=== PATIENT | female | born 1960 ===

== ENCOUNTER 2021-05-08 15:53 | Emergency (ER) | payer OTHER, MEDICARE ==
[~2021-05-08] VITALS: Ht 167.6 cm; Wt 66.7 kg
== END 2021-05-08 17:01 | disposition home or self-care (01) ==
LOC: ER 15:53
DX: U07.1 COVID-19 (principal); Z88.5 Allergy status to narcotic agent
CPT/HCPCS: 71046; 99283-25

== ENCOUNTER 2022-02-23 14:35 | Emergency (ER) | payer OTHER, MEDICARE ==
[~2022-02-23] VITALS: Ht 167.6 cm; Wt 66.7 kg
[2022-02-23] MEDS ORDERED: HYDHCL25 PO (15:32)
[2022-02-23] MEDS ORDERED: PRED20 PO (15:32)
== END 2022-02-23 15:47 | disposition home or self-care (01) ==
LOC: ER 14:35
DX: B02.9 Zoster without complications (principal); L25.9 Unspecified contact dermatitis, unspecified cause; Z88.5 Allergy status to narcotic agent
CPT/HCPCS: A9270

== ENCOUNTER 2022-11-08 23:01 | Emergency (ER) | payer OTHER, MEDICARE ==
[~2022-11-08] VITALS: Ht 160 cm; Wt 70.3 kg
[~2022-11-08 23:01] MED LIST: BENZ100A PO; HYDHCL25 PO; PRED20 PO; Prednisone20 MG PO; SYMBICORT 16010.2 GM INH
[2022-11-08 23:48] LABS: BASOPHILS ABSOLUTE AUTO 0.06 K/mm3 (0.00-0.23); BASOPHILS PERCENT AUTO 1 % (0-2); EOSINOPHILS ABSOLUTE AUTO 1.05 K/mm3 (0.00-0.68); EOSINOPHILS PERCENT AUTO 9 % (0-6); Hematocrit 42.4 % (33.0-51.0); Hemoglobin 14.8 g/dL (11.5-16.0); IMMATURE GRAN ABSOLUTE AUTO 0.04 K/mm3 (0.00-0.10); IMMATURE GRAN PERCENT AUTO 0 % (0-1); LYMPHOCYTES ABSOLUTE AUTO 3.29 K/mm3 (0.84-5.20); LYMPHOCYTES PERCENT AUTO 29 % (21-46); MONOCYTES ABSOLUTE AUTO 0.68 K/mm3 (0.16-1.47); MONOCYTES PERCENT AUTO 6 % (4-13); Mean Corpuscular HGB 31.8 pg (26.0-34.0); Mean Corpuscular HGB Conc 34.9 g/dL (31.5-36.5); Mean Corpuscular Volume 91 fL (80-100); Mean Platelet Volume 10.4 fL (9.1-12.4); NEUTROPHILS ABSOLUTE AUTO 6.41 K/mm3 (1.96-9.15); NEUTROPHILS PERCENT AUTO 56 % (41-73); Platelet Count 306 K/mm3 (150-400); RDW Coefficient Variation 11.9 % (11.7-14.2); RDW Standard Deviation 39.8 fL (35.1-46.3); Red Blood Cell Count 4.66 M/mm3 (3.80-5.20); White Blood Cell Count 11.53 K/mm3 (4.00-11.30)
[2022-11-09 00:07] LABS: Albumin, Blood 4.3 g/dL (3.4-5.0); Albumin/Globulin Ratio 1.1 (0.8-1.8); Bilirubin, Total 0.3 mg/dL (0.1-1.0); Bun/Creatinine Ratio 19.7 (12.0-20.0); Calcium, Blood 9.4 mg/dL (8.5-10.1); Creatinine, Blood 0.76 mg/dL (0.40-1.00); Potassium, Blood 3.7 mmol/L (3.5-5.5); Total Protein, Blood 8.3 g/dL (6.4-8.2)
[2022-11-09 02:58] LABS: Influenza A, PCR NEGATIVE (NEGATIVE); Influenza B, PCR NEGATIVE (NEGATIVE); Resp Syncytial Virus, PCR NEGATIVE (NEGATIVE); SARS-Cov-2 (COVID-19) PCR, MMC NEGATIVE (NEGATIVE)
[2022-11-09] MEDS ORDERED: PRED20 PO (03:38)
== END 2022-11-09 03:56 | disposition home or self-care (01) ==
LOC: ER 23:01
PROVIDERS: Emergency Medicine
DX: J45.901 Unspecified asthma with (acute) exacerbation (principal); F17.200 Nicotine dependence, unspecified, uncomplicated; Z88.5 Allergy status to narcotic agent; Z79.899 Other long term (current) drug therapy
CPT/HCPCS: 0241U; 36415; 70360; 71046; 80053; 83880; 84484; 85025; 93005; 93010; 94644; 94645; 94664; J1100; J3475